=== PATIENT | male | born 1985 ===

== ENCOUNTER 2018-05-29 21:03 | Observation (INO) ==
[2018-05-29] MEDS ORDERED: Lidocaine 1% 20 ML MDV INFILT ONE (21:40)
[2018-05-29] MEDS ORDERED: Acetaminophen 325 MG TABLET PO ONE (21:40)
[2018-05-29] MEDS ORDERED: Isovue-370 500 ML INFUS..BTL IV ONE (21:42)
[2018-05-29] MEDS ORDERED: Levofloxacin 750 MG/150 ML 750 MG/150 ML BAG IVPB ONE (21:43)
[2018-05-29 22:13] LABS: Basophils # 0.1 K/mcL (0.0-0.2); Basophils % 0.5 %; Eosinophils # 0.2 K/mcL (0.0-0.6); Eosinophils % 1.1 %; Hematocrit 43.2 % (37.5-50.1); Hemoglobin 14.1 g/dL (12.9-16.9); Immature Granulocytes % 0.3 % (0-4); Lymphocytes # 2.4 K/mcL (0.6-4.6); Lymphocytes % 15.9 %; Mean Corpuscular HGB Conc 32.6 g/dL (31.6-35.5); Mean Corpuscular Hemoglobin 28.3 pg (28.0-33.3); Mean Corpuscular Volume 86.6 fL (83.0-100.0); Monocytes % 6.6 %; Neutrophils # 11.3 K/mcL (1.6-8.9); Platelet Count 294 K/mcL (140-400); Red Blood Count 4.99 M/mcL (4.19-5.50); Red Cell Distribution Width 12.8 % (11.5-14.5); Segmented Neutrophils % 75.6 %
[2018-05-29 22:32] LABS: BUN/Creatinine Ratio 20 (6-26); Blood Urea Nitrogen 21 mg/dL (6-20); Calcium 9.9 mg/dL (8.6-10.3); Carbon Dioxide 15 mEq/L (23-29); Chloride 94 mEq/L (98-107); Glucose 441 mg/dL (70-105); Osmolality,Calculated 288 (280-300); Potassium 4.4 mEq/L (3.5-5.1); Sodium 128 mEq/L (136-145); eGFR For Non-African Americans > 60 (> 60)
--- NOTE | 2018-05-29 23:02 | Emergency Department Note ---
Disposition Clinical Impression: Cellulitis of groin, left Disposition: Admitted As Inpatient Condition: Fair Time of Disposition: 00:47 General Adult HPI - General Chief complaint: ED Skin/Abscess/Foreign Body Stated complaint: abscess on left thigh Time Seen by Provider: 05/29/18 21:21 Source: patient Mode of arrival: ambulatory Limitations: no limitations Nursing Notes Reviewed: Yes Vital Signs Reviewed: Yes - History of Present Illness HPI Narrative: Patient is a 32-year-old male with type 1 diabetes presenting to the emergency department for evaluation of an abscess. The patient states his symptoms started approximately 4 days ago she noticed a small razor bump in his left groin and it has progressed over the past 4 days to large area of swelling that was actively draining a purulent fluid yesterday. States she is also felt very fatigued and reports low fevers. Denies history of abscesses that needed drainage in the past. Denies history of IV drug use. Pain Scale: 4 - Related Data Home Medications Medication Instructions Recorded Confirmed Insulin NPH Hum/Reg Insulin Hm 28 - 30 unit SQ BID 05/30/18 05/30/18 [Novolin 70-30 100 Unit/ml Vial] Allergies Allergy/AdvReac Type Severity Reaction Status Date / Time No Known Allergies Allergy Verified 05/29/18 21:21 All systems ED: reviewed and negative except as stated. Review of Systems: As Per HPI Constitutional: Denies: fever, chills Cardiovascular: Denies: chest pain, palpitations Gastrointestinal: Denies: abdominal pain, nausea, vomiting Genitourinary: Reports: other (Left groin abscess) Musculoskeletal: Denies: back pain Past Medical History - Past Medical History Attestation: Yes The following information was validated with the patient. Medical history: Reports: diabetes Psychiatric history: Reports: no psych history - Social History Smoking Status: Never smoker Smokeless Tobacco Status: No Alcohol use: Reports: none Drug use: Reports: none Physical Exam CONSTITUTIONAL: Alert and oriented X3, well-nourished, well appearing, in no apparent distress HEAD: Normocephalic; atraumatic. EYES: PERRL, no scleral icterus. NOSE: The nose is normal in appearance without rhinorrhea RESP: Normal chest excursion with respiration; breath sounds clear and equal b ilaterally; no wheezes, rhonchi, or rales CARD: Regular rhythm, without murmurs, rub or gallop ABD: Non-distended; non-tender, soft,without rigidity, rebound or guarding : No testicular tenderness. No scrotal involvement. SKIN: Area of induration approximately 9cm x 3cm along the left inner thigh adjacent to the scrotum extending down across the left gluteal fold. Does not appear to be jovani-rectal involvement. Area of fluctuance over the area of induration. Surrounding erythema. - General Limitations: no limitations General appearance: alert Course Course Narrative: Given patient's tachycardia and he is just below febrile at 100.2 plan at this time is to treat him empirically with antibiotics, obtain cultures, also undergo CT scan of the pelvis with contrast to evaluate for extension of the abscess. Patient will most likely require admission given his history of diabetes location of the current abscess. - Reevaluation(s) Reevaluation #1: Patient's CT scan was unremarkable for phlegmon without any localization or collection of fluid. There was extension of the perineum and partially the scrotum but there was no free gas found. His lactic acid was normal. It a mild leukocytosis. His tachycardia improved with fluids is currently on IV antibiotics. Discussed case with the hospitalist on-call and he agrees to accep t the patient requested that I consult with general surgery to make them aware of the patient just in case he progresses into the 40s gangrene. Time: 00:46 Vital Signs Temperature 100.2 F H 05/29/18 21:17 Pulse Rate 109 05/29/18 21:17 Respiratory Rate 20 05/29/18 21:17 Blood Pressure 146/46 05/29/18 21:17 O2 Sat by Pulse Oximetry 98 05/29/18 21:17 Temperature 100.2 F H 05/29/18 21:17 Pulse Rate 93 05/29/18 23:24 Respiratory Rate 20 05/29/18 23:24 Blood Pressure 121/72 05/29/18 23:24 O2 Sat by Pulse Oximetry 100 05/29/18 23:24 Oxygen Delivery Oxygen Delivery Room Air Medical Decision Making - Medical Records Medical records reviewed: Yes I reviewed the patient's medical records. - Lab Data Lab results reviewed: Yes I reviewed the patient's lab results. Result diagrams: 05/31/18 04:02 05/31/18 04:02 Lab Results 05/29/18 05/29/18 05/29/18 Range/Units 21:40 21:40 21:55 WBC 14.9 H (4.3-11.1) K/mcL RBC 4.99 (4.19-5.50) M/mcL Hgb 14.1 (12.9-16.9) g/dL Hct 43.2 (37.5-50.1) % MCV 86.6 (83.0-100.0) fL MCH 28.3 (28.0-33.3) pg MCHC 32.6 (31.6-35.5) g/dL RDW 12.8 (11.5-14.5) % Plt Count 294 (140-400) K/mcL MPV 10.0 (9.4-12.4) fL Immature Gran % 0.3 (0-4) % Seg Neutrophils % 75.6 % Lymphocytes % 15.9 % Monocytes % 6.6 % Eosinophils % 1.1 % Basophils % 0.5 % Neutrophils # 11.3 H (1.6-8.9) K/mcL Lymphocytes # 2.4 (0.6-4.6) K/mcL Monocytes # 1.0 (0.0-1.3) K/mcL Eosinophils # 0.2 (0.0-0.6) K/mcL Basophils # 0.1 (0.0-0.2) K/mcL Sodium 128 L (136-145) mEq/L Potassium 4.4 (3.5-5.1) mEq/L Chloride 94 L (98-107) mEq/L Carbon Dioxide 15 L (23-29) mEq/L BUN 21 H (6-20) mg/dL Creatinine 1.05 (0.70-1.30) mg/dL Est GFR ( Amer) > 60 (> 60) Est GFR (Non-Af Amer) > 60 (> 60) BUN/Creatinine Ratio 20 (6-26) Glucose 441 H (70-105) mg/dL Calculated Osmolality 288 (280-300) Lactic Acid 1.4 (0.5-2.2) mmol/L Calcium 9.9 (8.6-10.3) mg/dL - Radiology Data Radiology results reviewed: Yes I reviewed the patient's radiology results. Pelvis CT 05/29/18 21:42 IMPRESSION: Upper inner thigh edema and phlegmon, but a well-defined enhancing rim is not seen to suggest focal abscess at this time. This process partially extends into the perineum at the base of the scrotum. No soft tissue gas is detected. D/ / Jose Juan Chun MD / Jose Juan Chun MD Interpreting Provider: Jose Juan Chun MD
--- NOTE | 2018-05-29 23:08 | Emergency Department Note ---
Disposition Clinical Impression: Perineal abscess Disposition: Admitted As Inpatient Condition: Fair Referrals: NONE,PCP [Primary Care Provider] - Forms: ED Satisfaction Letter Time of Disposition: 00:45 General Adult HPI - General Chief complaint: ED Skin/Abscess/Foreign Body Stated complaint: abscess on left thigh Time Seen by Provider: 05/29/18 21:21 Source: patient Limitations: no limitations - History of Present Illness Pain Scale: 9 - Related Data Home Medications Medication Instructions Recorded Confirmed Loratadine 11/27/16 Novalin 70/30 Insulin 11/27/16 Previous Rx's Medication Instructions Recorded predniSONE [Prednisone] 20 mg PO DAILY #10 tablet 11/27/16 Diclofenac Potassium 50 mg PO TID PRN #20 tablet 12/23/17 Allergies Allergy/AdvReac Type Severity Reaction Status Date / Time No Known Allergies Allergy Verified 05/29/18 21:21 Past Medical History - Past Medical History Medical history: Reports: diabetes Psychiatric history: Reports: no psych history - Social History Smoking Status: Never smoker Smokeless Tobacco Status: No Alcohol use: Reports: none Drug use: Reports: none Physical Exam - General Limitations: no limitations General appearance: alert Course Vital Signs Temperature 100.2 F H 05/29/18 21:17 Pulse Rate 109 05/29/18 21:17 Respiratory Rate 20 05/29/18 21:17 Blood Pressure 146/46 05/29/18 21:17 O2 Sat by Pulse Oximetry 98 05/29/18 21:17 Temperature 100.2 F H 05/29/18 21:17 Pulse Rate 93 05/29/18 23:24 Respiratory Rate 20 05/29/18 23:24 Blood Pressure 121/72 05/29/18 23:24 O2 Sat by Pulse Oximetry 100 05/29/18 23:24 Oxygen Delivery Oxygen Delivery Room Air Medical Decision Making - Lab Data Result diagrams: 05/29/18 21:40 05/29/18 21:40 Lab Results 05/29/18 05/29/18 05/29/18 Range/Units 21:40 21:40 21:55 WBC 14.9 H (4.3-11.1) K/mcL RBC 4.99 (4.19-5.50) M/mcL Hgb 14.1 (12.9-16.9) g/dL Hct 43.2 (37.5-50.1) % MCV 86.6 (83.0-100.0) fL MCH 28.3 (28.0-33.3) pg MCHC 32.6 (31.6-35.5) g/dL RDW 12.8 (11.5-14.5) % Plt Count 294 (140-400) K/mcL MPV 10.0 (9.4-12.4) fL Immature Gran % 0.3 (0-4) % Seg Neutrophils % 75.6 % Lymphocytes % 15.9 % Monocytes % 6.6 % Eosinophils % 1.1 % Basophils % 0.5 % Neutrophils # 11.3 H (1.6-8.9) K/mcL Lymphocytes # 2.4 (0.6-4.6) K/mcL Monocytes # 1.0 (0.0-1.3) K/mcL Eosinophils # 0.2 (0.0-0.6) K/mcL Basophils # 0.1 (0.0-0.2) K/mcL Sodium 128 L (136-145) mEq/L Potassium 4.4 (3.5-5.1) mEq/L Chloride 94 L (98-107) mEq/L Carbon Dioxide 15 L (23-29) mEq/L BUN 21 H (6-20) mg/dL Creatinine 1.05 (0.70-1.30) mg/dL Est GFR ( Amer) > 60 (> 60) Est GFR (Non-Af Amer) > 60 (> 60) BUN/Creatinine Ratio 20 (6-26) Glucose 441 H (70-105) mg/dL Calculated Osmolality 288 (280-300) Lactic Acid 1.4 (0.5-2.2) mmol/L Calcium 9.9 (8.6-10.3) mg/dL Attestation Statement - Attestation Attestation: I examined this patient and my medical decision-making was reviewed with the Resident Physician. I agree with the documented findings, disposition and treatment plan as described except to the extent set forth below. Patient to the ED with a chief complaint of thigh abscess. Patient has an abscess that started 4 days ago as a pimple. It is grown. Fever. He is a type I diabetic. On examination he has an area of fluctuance lateral to the scrotum. Extending into the gluteal fold. Plan. We will check CT. Basic lab work. Likely admission. . Patient has a white blood cell count of 15. Tachycardia. He meet sepsis criteria. Patient admitted to the hospitalist with a surgical consult. Pelvis CT 05/29/18 21:42 IMPRESSION: Upper inner thigh edema and phlegmon, but a well-defined enhancing rim is not seen to suggest focal abscess at this time. This process partially extends into the perineum at the base of the scrotum. No soft tissue gas is detected. D/ / Jose Juan Chun MD / Jose Juan Chun MD Interpreting Provider: Jose Juan Chun MD
[2018-05-30] MEDS ORDERED: Insulin LISPRO 300 UNITS/3 ML VIAL SQ STA (00:51)
--- NOTE | 2018-05-30 08:20 | General Surgery Consult Note ---
<Charanjit Canales S - Last Filed: 05/30/18 17:20> Date of Encounter: 05/30/18 Time of Encounter: 07:56 Assessment and Plan (1) Abscess or cellulitis of groin Current Visit: Yes Status: Acute Surgery consulted for abscess of left thigh CT showed edema and phlegmon in upper inner thigh, no focal rim to suggest abscess, no soft tissue gas Patient did not have incision and drainage in ED Patient on IV Vancomycin and Zosyn WBC 14.9, continue to monitor Blood and wound cultures pending Will continue current treatment, may need incision and drainage tomorrow (2) Diabetes Current Visit: Yes Status: Acute Management per primary team Patient on med dose sliding scale insulin and 10 units of levemir at night POC glucose checks Qualifiers: Diabetes mellitus type: type 1 Diabetes mellitus complication detail: with diabetic retinopathy Qualified Code(s): E10.3559 - Type 1 diabetes mellitus wi th stable proliferative diabetic retinopathy, unspecified eye History of Present Illness Consult date: 05/30/18 Reason for consult: other (left thigh abscess) Requesting physician: Nathan Ramirez History of present illness: 32 year old male with PMHx of DM1 presented to [place] ED with mass on left inner thigh. Surgery consulted for abscess. Patient states the mass is located in his upper inner thigh and has been present for the past 4 days and has increased in size. Patient states there is localized pain and it's tender on palpation. He has no history of abscesses. He denies fevers/chill, CP, abdominal pain, nausea, vomiting, changes in bowel/bladder habits. Patient denies IV drug use, tobacco use, and alcohol use. Patient states he doesn't know when his last HbA1c was. Past Med Surg Social Fam HX - Past Medical History Medical history: diabetes Additional medical history: type ! DM Psychiatric history: no psych history - Social History Smoking Status: Never smoker Smokeless Tobacco Status: No Alcohol use: none Drug use: none - Family History Father Living Status: Hx Family Cardiac Disorders: Yes Hx Family Endocrine Disorder: Yes Mother Living Status: Still Living Hx Family Cancer: Yes Medications and Allergies Insulin NPH Hum/Reg Insulin Hm [Novolin 70-30 100 Unit/ml Vial] 28 - 30 unit SQ BID 05/30/18 [History] Allergy/AdvReac Type Severity Reaction Status Date / Time No Known Allergies Allergy Verified 05/29/18 21:21 Review of Systems All systems PM: The remainder of the systems were reviewed and are negative General Surgery Exam Initial Vital Signs Temp Pulse Resp BP Pulse Ox 100.2 F H 109 20 146/46 98 05/29/18 21:17 05/29/18 21:17 05/29/18 21:17 05/29/18 21:17 05/29/18 21:17 - General physical appearance well developed, well nourished, no distress - Respiratory normal expansion, normal respiratory effort - Cardiovascular Cardiovascular exam: Present: RRR - Abdomen Abdomen general surgery: Present: bowel sounds present, soft, non tender - Integumentary Integumentary general surgery: Present: warm and dry, other (3-4 cm indurated erythematous mass in upper inner left thigh adjacent to the scrotum, no fluctuance, not actively draining) - Psychiatric Psychiatric general surgery: Present: A&Ox3, appropriate Exam Initial Vital Signs Temp Pulse Resp BP Pulse Ox 100.2 F H 109 20 146/46 98 05/29/18 21:17 05/29/18 21:17 05/29/18 21:17 05/29/18 21:17 05/29/18 21:17 Results - Labs 05/29/18 21:40 05/29/18 21:40 Abnormal lab results WBC 14.9 K/mcL (4.3-11.1) H 05/29/18 21:40 Neutrophils # 11.3 K/mcL (1.6-8.9) H 05/29/18 21:40 Sodium 128 mEq/L (136-145) L 05/29/18 21:40 Chloride 94 mEq/L (98-107) L 05/29/18 21:40 Carbon Dioxide 15 mEq/L (23-29) L 05/29/18 21:40 BUN 21 mg/dL (6-20) H 05/29/18 21:40 Glucose 441 mg/dL (70-105) H 05/29/18 21:40 Diabetes panel 05/29/18 Range/Units 21:40 Sodium 128 L (136-145) mEq/L Potassium 4.4 (3.5-5.1) mEq/L Chloride 94 L (98-107) mEq/L Carbon Dioxide 15 L (23-29) mEq/L BUN 21 H (6-20) mg/dL Creatinine 1.05 (0.70-1.30) mg/dL Glucose 441 H (70-105) mg/dL Calcium 9.9 (8.6-10.3) mg/dL Calcium panel 05/29/18 Range/Units 21:40 Calcium 9.9 (8.6-10.3) mg/dL Pituitary panel 05/29/18 Range/Units 21:40 Sodium 128 L (136-145) mEq/L Potassium 4.4 (3.5-5.1) mEq/L Chloride 94 L (98-107) mEq/L Carbon Dioxide 15 L (23-29) mEq/L BUN 21 H (6-20) mg/dL Creatinine 1.05 (0.70-1.30) mg/dL Glucose 441 H (70-105) mg/dL Calcium 9.9 (8.6-10.3) mg/dL Adrenal panel 05/29/18 Range/Units 21:40 Sodium 128 L (136-145) mEq/L Potassium 4.4 (3.5-5.1) mEq/L Chloride 94 L (98-107) mEq/L Carbon Dioxide 15 L (23-29) mEq/L BUN 21 H (6-20) mg/dL Creatinine 1.05 (0.70-1.30) mg/dL Glucose 441 H (70-105) mg/dL Calcium 9.9 (8.6-10.3) mg/dL All other labs normal. Consult Discharge Plan - Plan Instructions: Abscess (GEN) Additional Instructions: Daily wound care: Monday and Monday, remove dressing and packing. Shower with antibacterial soap. Repack with 1/4 inch iodoform gauze. Cover with 4x4s. Tape to secure. Beginning Monday and forward continue the same routine however repack with 1/4 inch plain gauze. Referrals: Nuvia Barrios, GATEMAN [Advanced Practice Nurse] - <Markus Bethea - Last Filed: 06/01/18 13:19> Date of Encounter: 05/31/18 Assessment and Plan (1) Abscess or cellulitis of groin Current Visit: Yes Status: Acute (2) Diabetes Current Visit: Yes Status: Acute Qualifiers: Diabetes mellitus type: type 1 Diabetes mellitus complication detail: with diabetic retinopathy Qualified Code(s): E10.3559 - Type 1 diabetes mellitus with stable proliferative diabetic retinopathy, unspecified eye Review of Systems All systems PM: The remainder of the systems were reviewed and are negative General Surgery Exam Initial Vital Signs Temp Pulse Resp BP Pulse Ox 100.2 F H 109 20 146/46 98 05/29/18 21:17 05/29/18 21:17 05/29/18 21:17 05/29/18 21:17 05/29/18 21:17 Exam Initial Vital Signs Temp Pulse Resp BP Pulse Ox 100.2 F H 109 20 146/46 98 05/29/18 21:17 05/29/18 21:17 05/29/18 21:17 05/29/18 21:17 05/29/18 21:17 Results - Labs 05/31/18 04:02 05/31/18 04:02 Abnormal lab results Carbon Dioxide 22 mEq/L (23-29) L 05/31/18 04:02 Glucose 194 mg/dL (70-105) H 05/31/18 04:02 POC Glucose 228 mg/dL (70-99) H 06/01/18 03:20 All other labs normal. - Attending Attestation I have personally performed a face to face evaluation on this patient. I have reviewed and agree with the care plan. History and Exam by me shows: The patient is seen and evaluated. He initially had an area of cellulitis without fluctuance however, this developed into an abscess that required incision and drainage. Orders for packing have been arranged. Markus Bethea MD FACS
[2018-05-30] MEDS ORDERED: Naloxone 0.4 MG/ML INJ IVP PRN (08:36)
--- NOTE | 2018-05-30 08:45 | Internal Med History&Physical ---
Date of Encounter: 05/30/18 Time of Encounter: 08:44 Internal Medicine - H&P: HPI Chief complaint: thigh swelling Admitted From: Home Plans for Post Hospital Care: Home History of present illness: Mr. Vargas is a 32 year old male with past medical history of type 1 diabetes since age 13 and associated retinopathy coming complain of swelling on his thigh and groin region. Patient noticed a pimple around 4 days ago which she tried to squeeze and manage himself. The swelling increased over the next 2-3 days which made him to come to ER. He felt flulike symptoms and had mild grade fever about 100-101. Denies any chills lightheadedness. He had associated feeling of malaise and achiness skin. He has severe pain associated with swelling in the left groin region and had difficulty moving his legs due to the pain and swelling. At the other year facility he mentioned that they did rachel it to relieve pressure. He received vancomycin and Levaquin and was transferred for further management and [place]. Patient seen this morning. Currently with better pain control. Swelling decreased according to patient's and is able to move his leg without significant pain. Patient takes Novolin 70/30 around 28-30 units according to his sugar checks. 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 He has known retinopathy. Denies any tingling numbness, chest pain, shortness of breath, back pain, abdominal pain, leg swelling. The only medication he takes is insulin at home and ibuprofen for past few days. Has not received any antibiotics in the last year. Past Med Surg Social Fam HX - Past Medical History Medical history: diabetes Additional medical history: type ! DM Psychiatric history: no psych history - Social History Smoking Status: Never smoker Smokeless Tobacco Status: No Alcohol use: none Drug use: none - Family History Mother Living Status: Still Living Hx Family Cancer: Yes Father Living Status: Hx Family Cardiac Disorders: Yes Hx Family Endocrine Disorder: Yes Internal Medicine - H&P: Meds Loratadine 11/27/16 [History] Novalin 70/30 Insulin 11/27/16 [History] predniSONE [Prednisone] 20 mg PO DAILY #10 tablet 11/27/16 [Rx] Diclofenac Potassium 50 mg PO TID PRN #20 tablet 12/23/17 [Rx] Allergy/AdvReac Type Severity Reaction Status Date / Time No Known Allergies Allergy Verified 05/29/18 21:21 All Systems PM: A 10-system review of systems was performed and is negative for pertinent findings except as documented above in the HPI. - Constitutional Vitals: Temp Pulse Resp BP Pulse Ox 98.8 F 85 18 121/73 98 05/30/18 07:04 05/30/18 07:04 05/30/18 07:04 05/30/18 07:04 05/30/18 08:11 General appearance: Present: A&O X 3 Exam: Constitutional: Vitals as noted. Conversant. No Apparent Distress. Eyes : Sclera white, conjunctiva clear, no lid lag, PEARLA. ENT : Grossly normal hearing. Oropharyngeal exam unremarkable. Moist mucus membranes. No JVD, no cervical lymphadenopathy. no thyromegaly or mass. Respiratory : Clear to auscultation bilaterally. No accessory muscle use, rales, rhonchi or wheezes Cardiovascular : RRR, +S1, +S2. no murmur, gallop, rubs. No chest wall tenderness. pulses palpable and symmetrical in UE/LE. GI/Abdominal : Soft, Non-tender, Non-distended, normal bowel sounds, soft, no peritoneal signs. no orgenomegaly or mass appreciated. no hernia. Musculoskeletal: no deformity noted. no edema or cyanosis. warm extremities, no calf tenderness. Neurological: AO X3, CN II-XII grossly intact, grossly normal motor and sensory exam. Skin: 6x7 cm indurated lesion on Medial aspect on Left groin extending to scrotal region. Minimal drainage noted. Pych: Good insight and judgement. Intact memory. AOx3. Internal Med - H&P Results - Labs CBC & Chem 7: 05/29/18 21:40 05/29/18 21:40 Labs: Short CBC 05/29/18 Range/Units 21:40 WBC 14.9 H (4.3-11.1) K/mcL Hgb 14.1 (12.9-16.9) g/dL Hct 43.2 (37.5-50.1) % Plt Count 294 (140-400) K/mcL Neutrophils # 11.3 H (1.6-8.9) K/mcL BMP 05/29/18 21:40 Sodium 128 L Potassium 4.4 Chloride 94 L Carbon Dioxide 15 L BUN 21 H Creatinine 1.05 Glucose 441 H Calcium 9.9 - Impressions ITS Impressions Pelvis CT 05/29/18 21:42 IMPRESSION: Upper inner thigh edema and phlegmon, but a well-defined enhancing rim is not seen to suggest focal abscess at this time. This process partially extends into the perineum at the base of the scrotum. No soft tissue gas is detected. D/ / Jose Juan Chun MD / Jose Juan Chun MD Interpreting Provider: Jose Juan Chun MD - Assessment and plan (1) Abscess or cellulitis of groin Current Visit: Yes Status: Acute Assessment and plan: Patient has cellulitis/phlegmon on left groin without CT evidence of any gas - No CT evidence of enhancing rim to suggest abscess - Patient had some drainage the other facility - We will continue patient on vancomycin. Add Zosyn gram-negative and anaerobic coverage for now. - Follow up blood cultures and drainage cultures - We will likely need drainage. Surgery following. - Pain control with ibuprofen and acetaminophen (2) Diabetes Current Visit: Yes Status: Acute Assessment and plan: - 10 units Levemir at night. May increase based on Accu-Cheks - Continue with Accu-Cheks and sliding scale insulin Qualifiers: Diabetes mellitus type: type 1 Diabetes mellitus complication detail: with diabetic retinopathy Qualified Code(s): E10.3559 - Type 1 diabetes mellitus with stable proliferative diabetic retinopathy, unspecified eye - Time Spent With Patient Total time spent is greater than 50% in coordination of care (as documented) at patient's floor/unit and/or counseling patient: - VTE Reasons for not Prescribing Prophylaxis: Treatment not Indicated - Low risk for VTE
[2018-05-30] MEDS ORDERED: Ibuprofen 600 MG TABLET PO PRN (09:16)
[2018-05-30] MEDS ORDERED: Acetaminophen 325 MG TABLET PO PRN (09:18)
[2018-05-30] MEDS: Piperacillin/Tazobactam 3.375 GM in 0.9 % Sodium Chloride Mini Bag 100 ML IVPB SCH ×2 (11:07→16:41)
[2018-05-30] MEDS: Insulin LISPRO 300 UNITS/3 ML VIAL SQ SCH ×2 (12:47→16:43)
[2018-05-30] MEDS ORDERED: Insulin DETEMIR 100 UNIT/ML X5UNITS SQ SCH (21:00)
[2018-05-31] MEDS: Piperacillin/Tazobactam 3.375 GM in 0.9 % Sodium Chloride Mini Bag 100 ML IVPB SCH ×3 (00:08→17:15)
[2018-05-31 04:39] LABS: Basophils # 0.1 K/mcL (0.0-0.2); Basophils % 0.5 %; Eosinophils # 0.5 K/mcL (0.0-0.6); Eosinophils % 4.8 %; Hematocrit 38.2 % (37.5-50.1); Immature Granulocytes % 0.2 % (0-4); Lymphocytes # 2.6 K/mcL (0.6-4.6); Lymphocytes % 26.3 %; Mean Corpuscular Hemoglobin 28.4 pg (28.0-33.3); Mean Corpuscular Volume 83.4 fL (83.0-100.0); Mean Platelet Volume 9.6 fL (9.4-12.4); Monocytes # 0.8 K/mcL (0.0-1.3); Monocytes % 8.6 %; Neutrophils # 5.8 K/mcL (1.6-8.9); Platelet Count 261 K/mcL (140-400); Red Blood Count 4.58 M/mcL (4.19-5.50); Red Cell Distribution Width 12.9 % (11.5-14.5); Segmented Neutrophils % 59.6 %
[2018-05-31 05:03] LABS: BUN/Creatinine Ratio 10 (6-26); Blood Urea Nitrogen 8 mg/dL (6-20); Calcium 9.3 mg/dL (8.6-10.3); Carbon Dioxide 22 mEq/L (23-29); Chloride 102 mEq/L (98-107); Glucose 194 mg/dL (70-105); Osmolality,Calculated 288 (280-300); Potassium 3.9 mEq/L (3.5-5.1); Sodium 137 mEq/L (136-145); eGFR For Non-African Americans > 60 (> 60)
[2018-05-31] MEDS: Insulin LISPRO 300 UNITS/3 ML VIAL SQ SCH ×4 (08:32→23:40)
[2018-05-31] MEDS ORDERED: Lidocaine -MPF 2% 5 ML VIAL INFILT ONE (08:42)
[2018-05-31] MEDS ORDERED: Lidocaine -MPF 2% 10 ML AMPUL INFILT STA (08:56)
--- NOTE | 2018-05-31 09:01 | General Surgery Procedure Note ---
Date of procedure: 05/31/18 Pre-op diagnosis: abscess Procedure: ABSCESS INCISION AND DRAINAGE NOTE INDICATION: Abscess manifested as a tender, swollen fluctuant mass in the superficial subcutaneous tissue. INFORMED CONSENT: The risks and benefits of the procedure including incomplete drainage, scarring, infection and bleeding was explained and the patient verbalized their understanding and wished to proceed with the procedure. PROCEDURE: The area of greatest fluctuance was identified, prepped, and draped in a sterile fashion. Local anesthetic (10 MLs of 2% lidocaine) was introduced subcutaneously over the area of greatest fluctuance. A linear incision was then made over the area of greatest fluctuance, with immediate return of a large amount of purulent material. The wound was explored with a hemostat to break up loculations and irrigated with 40MLs saline solution. Once the wound was explored, cleaned, and irrigated, 1/4 inch iodoform gauze packing was placed loosely in the wound. A dressing was then applied. FINDINGS: Purulent drainage. EBL: <5 mL COMPLICATIONS: None. Signature: Camila Urban APRN, MANAGER [employer]
[2018-05-31] MEDS ORDERED: Lidocaine -MPF 2% 5 ML VIAL INFILT STA (09:03)
[2018-05-31] MEDS ORDERED: *HR* FentaNYL (PF) 100 MCG/2 ML VIAL IVP STA (09:03)
[2018-05-31] MEDS ORDERED: Ondansetron 4 MG/2 ML VIAL IVP STA (09:04)
--- NOTE | 2018-05-31 10:08 | General Surgery Progress Note ---
Date of Encounter: 05/31/18 Time of Encounter: 09:59 - Assessment and Plan (1) Abscess or cellulitis of groin Current Visit: Yes Status: Acute I&D completed (see procedure note). Copious amounts purulent material retrieved. Cultures obtained. May change outer dressing today if needed, do not remove packing. Daily wound care: remove dressing and packing. Shower with antibacterial soap. Repack with 1/4 inch iodoform gauze on Monday and Monday. Cover with a dry dressing. Beginning Monday continue same regiment with 1/4 inch plain gauze. Follow-up priti/vernon 06/08/2018 ATBX per primary team Surgery will sign off at this time. Patient will need home healthcare for wound packing. He will not be able to pack this wound by himself and there is no one at home who can help him. 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 It's a history of frequent ingrown hairs and he is a type I diabetic. He denies IV drug use Objective Vital Signs - Last 8 Hours Temp Pulse Resp BP Pulse Ox 05/31/18 06:54 98.8 F 73 16 115/75 97 05/31/18 05:00 98.3 F 74 15 117/73 98 Intake and Output 05/30/18 05/31/18 05/31/18 23:59 07:59 15:59 Intake Total 1000 / 1000 250 / 250 100 / 100 Output Total 900 / 900 800 / 800 Balance 100 / 100 -550 / -550 100 / 100 Intake: IV Fluids 100 / 100 250 / 250 100 / 100 Zosyn 3.375 GM In 0.9 % Sodium 100 / 100 100 / 100 Chloride (Mini-Bag +) 100 ML @ 25 mls/hr IVPB Q8HR [facility] Rx#: [id number] Vancocin 1,250 MG In 0.9 % 250 / 250 Sodium Chloride 250 ML @ 166.67 mls/hr IVPB Q12H [facility]ZE[facility] Rx#: [id number] Oral 900 / 900 0 / 0 Output: Urine 900 / 900 800 / 800 Other: # Bowel Movements 0 Weight 85.2 kg Blood Glucose* 275 200 Patient Weight 05/31/18 23:59 Weight 85.2 kg - General physical appearance no distress - Eyes normal ocular movement - ENT normal nares, atraumatic, normocephalic - Respiratory normal expansion, normal respiratory effort, clear to auscultation - Cardiovascular Cardiovascular exam: Present: RRR - Abdomen Abdomen: Present: bowel sounds present, soft, non tender - Genitourinary other (Left groin abscess extends near the scrotum but is not communicating to the scrotum.) - Integumentary other (Left groin abscess extends near the gluteus and scrotum. Draining. Obvious areas of fluctuance.) - Musculoskeletal normal posture - Psychiatric oriented to time, oriented to person, oriented to place, speech is normal, memory intact - Labs 05/31/18 04:02 05/31/18 04:02 Diabetes panel 05/31/18 Range/Units 04:02 Sodium 137 (136-145) mEq/L Potassium 3.9 (3.5-5.1) mEq/L Chloride 102 (98-107) mEq/L Carbon Dioxide 22 L (23-29) mEq/L BUN 8 (6-20) mg/dL Creatinine 0.80 (0.70-1.30) mg/dL Glucose 194 H (70-105) mg/dL Calcium 9.3 (8.6-10.3) mg/dL Calcium panel 05/31/18 Range/Units 04:02 Calcium 9.3 (8.6-10.3) mg/dL Pituitary panel 05/31/18 Range/Units 04:02 Sodium 137 (136-145) mEq/L Potassium 3.9 (3.5-5.1) mEq/L Chloride 102 (98-107) mEq/L Carbon Dioxide 22 L (23-29) mEq/L BUN 8 (6-20) mg/dL Creatinine 0.80 (0.70-1.30) mg/dL Glucose 194 H (70-105) mg/dL Calcium 9.3 (8.6-10.3) mg/dL Adrenal panel 05/31/18 Range/Units 04:02 Sodium 137 (136-145) mEq/L Potassium 3.9 (3.5-5.1) mEq/L Chloride 102 (98-107) mEq/L Carbon Dioxide 22 L (23-29) mEq/L BUN 8 (6-20) mg/dL Creatinine 0.80 (0.70-1.30) mg/dL Glucose 194 H (70-105) mg/dL Calcium 9.3 (8.6-10.3) mg/dL - VTE Reasons for not Prescribing Prophylaxis: Treatment not Indicated - Low risk for VTE Consult Discharge Plan - Plan Instructions: Abscess (GEN) Additional Instructions: Daily wound care: Monday and Monday, remove dressing and packing. Shower with antibacterial soap. Repack with 1/4 inch iodoform gauze. Cover with 4x4s. Tape to secure. Beginning Monday and forward continue the same routine however repack with 1/4 inch plain gauze. Referrals: Nuvia Barrios, ARMORING MACHINE OPERATOR [Advanced Practice Nurse] -
[2018-05-31] MEDS ORDERED: *HR* HYDROcodone/Acet 5/325 mg TABLET PO PRN (10:12)
[2018-05-31] MEDS ORDERED: Vancomycin 500 MG in 0.9 % Sodium Chloride Mini Bag 100 ML IVPB STA (13:01)
--- NOTE | 2018-05-31 15:09 | Internal Med Progress Note ---
Hospitalist Progress Note - Encounter Date of Encounter: 05/31/18 Time of Encounter: 12:16 - Subjective Interval History: Patient seen and examined this morning. No acute overnight events. Denies new complains. Pain impoved. No fever, chills, N/V/D. - Exam Vitals: Temp Pulse Resp BP Pulse Ox 98.5 F 90 16 128/76 98 05/31/18 14:27 05/31/18 14:27 05/31/18 14:27 05/31/18 14:27 05/31/18 14:27 Exam: Constitutional: Vitals as noted. Conversant. No Apparent Distress. ENT : Grossly normal hearing. Oropharyngeal exam unremarkable. Moist mucus membranes. No JVD, no cervical lymphadenopathy. no thyromegaly or mass. Respiratory : Clear to auscultation bilaterally. No accessory muscle use, rales, rhonchi or wheezes Cardiovascular : RRR, +S1, +S2. no murmur, gallop, rubs. No chest wall tenderness. pulses palpable and symmetrical in UE/LE. GI/Abdominal : Soft, Non-tender, Non-distended, normal bowel sounds, soft, no peritoneal signs. no orgenomegaly or mass appreciated. no hernia. Musculoskeletal: no deformity noted. no edema or cyanosis. warm extremities, no calf tenderness. Neurological: AO X3, CN II-XII grossly intact, grossly normal motor and sensory exam. Skin: Dressing recently place after I&D. Did not reopen. - Assessment and Plan (1) Abscess or cellulitis of groin Current Visit: Yes Status: Acute (2) Diabetes Current Visit: Yes Status: Acute - Summary of Assessment and Plan Summary of Assessment and Plan: Abscess or cellulitis of groin - No CT evidence of any gas or enhancing rim to suggest abscess - s/p I&D - c/w vancomycin and Zosyn - f/u cultures - Pain control with ibuprofen and acetaminophen - Plan for DC based on culture report Diabetes - Will increase Levemir to 20 tonight - Continue with Accu-Cheks and sliding scale insulin - Time Spent with Patient Total time spent is greater than 50% in coordination of care (as documented) at patient's floor/unit and/or counseling patient: Internal Medicine: Result - Labs CBC & Chem 7: 05/31/18 04:02 05/31/18 04:02 Labs: Short CBC 05/31/18 Range/Units 04:02 WBC 9.8 (4.3-11.1) K/mcL Hgb 13.0 (12.9-16.9) g/dL Hct 38.2 (37.5-50.1) % Plt Count 261 (140-400) K/mcL Neutrophils # 5.8 (1.6-8.9) K/mcL BMP 05/31/18 04:02 Sodium 137 Potassium 3.9 Chloride 102 Carbon Dioxide 22 L BUN 8 Creatinine 0.80 Glucose 194 H Calcium 9.3 - VTE Reasons for not Prescribing Prophylaxis: Treatment not Indicated - Low risk for VTE Consult Discharge Plan - Plan Instructions: Abscess (GEN) Additional Instructions: Daily wound care: Monday and Monday, remove dressing and packing. Shower with antibacterial soap. Repack with 1/4 inch iodoform gauze. Cover with 4x4s. Tape to secure. Beginning Monday and forward continue the same routine however repack with 1/4 inch plain gauze. 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
[2018-05-31] MEDS ORDERED: Insulin DETEMIR 100 UNIT/ML X5UNITS SQ SCH (21:00)
[2018-06-01] MEDS: Piperacillin/Tazobactam 3.375 GM in 0.9 % Sodium Chloride Mini Bag 100 ML IVPB SCH ×3 (02:01→17:10)
[2018-06-01] MEDS: Insulin LISPRO 300 UNITS/3 ML VIAL SQ SCH ×4 (09:03→20:34)
[2018-06-01] MEDS ORDERED: Aminoglycoside Consult 1 EACH MC ONE (11:43)
--- NOTE | 2018-06-01 12:02 | Internal Med Progress Note ---
Hospitalist Progress Note - Encounter Date of Encounter: 06/01/18 Time of Encounter: 10:54 - Subjective Interval History: Patient seen and examined this morning. No acute overnight events. Pain improved. No fever, chills, N/V/D. c/o some headache. - Exam Vitals: Temp Pulse Resp BP Pulse Ox 98.4 F 92 15 135/83 99 06/01/18 10:21 06/01/18 10:21 06/01/18 10:21 06/01/18 10:21 06/01/18 10:21 Exam: Constitutional: Vitals as noted. Conversant. No Apparent Distress. Respiratory : Clear to auscultation bilaterally. No accessory muscle use, rales, rhonchi or wheezes Cardiovascular : RRR, +S1, +S2. no murmur, gallop, rubs. No chest wall tenderness. pulses palpable and symmetrical in UE/LE. GI/Abdominal : Soft, Non-tender, Non-distended, normal bowel sounds, soft, no peritoneal signs. no orgenomegaly or mass appreciated. no hernia. Musculoskeletal: no deformity noted. no edema or cyanosis. warm extremities, no calf tenderness. Neurological: AO X3, CN II-XII grossly intact, grossly normal motor and sensory exam. Skin: Dressing replaced bone char kiln operator. - Assessment and Plan (1) Abscess or cellulitis of groin Current Visit: Yes Status: Acute (2) Diabetes Current Visit: Yes Status: Acute - Summary of Assessment and Plan Summary of Assessment and Plan: Abscess or cellulitis of groin - No CT evidence of any gas or enhancing rim to suggest abscess - s/p I&D 05/31 - c/w vancomycin and Zosyn - f/u cultures. - Pain control with ibuprofen and acetaminophen - Plan for DC based on culture report Diabetes - c/w Levemir at 30. - Continue with Accu-Cheks and sliding scale insulin - Time Spent with Patient Total time spent is greater than 50% in coordination of care (as documented) at patient's floor/unit and/or counseling patient: Internal Medicine: Result - Labs CBC & Chem 7: 05/31/18 04:02 05/31/18 04:02 - VTE Reasons for not Prescribing Prophylaxis: Treatment not Indicated - Low risk for VTE Consult Discharge Plan - Plan Instructions: Abscess (GEN) Additional Instructions: Daily wound care: Monday and Monday, remove dressing and packing. Shower with antibacterial soap. Repack with 1/4 inch iodoform gauze. Cover with 4x4s. Tape to secure. Beginning Monday and continue the same routine however repack with 1/4 inch plain gauze. 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
[2018-06-01] MEDS ORDERED: *HR* HYDROcodone/Acet 5/325 mg TABLET PO PRN (14:30)
[2018-06-01] MEDS: Ibuprofen 600 MG TABLET PO SCH (20:33)
[2018-06-01] MEDS ORDERED: Insulin DETEMIR 100 UNIT/ML X5UNITS SQ SCH (21:00)
[2018-06-02] MEDS: Piperacillin/Tazobactam 3.375 GM in 0.9 % Sodium Chloride Mini Bag 100 ML IVPB SCH ×2 (00:31→09:21)
[2018-06-02 07:49] VITALS: BP 127/78
[2018-06-02] MEDS: Insulin LISPRO 300 UNITS/3 ML VIAL SQ SCH (08:01)
--- NOTE | 2018-06-02 08:57 | Discharge Summary ---
- NOTES TO OUTPATIENT PROVIDER Notes to Outpatient Provider: s/p I&D of abscess. Wound cultures grew step agalactie.Home health arranged for dressing. 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 Vargas is a 32 year old male past medical history of type 1 diabetes with retinopathy came with cellulitis and abscess in the left gluteal region extending to scrotum. Patient had I&D done by surgery. Wound cultures grew Streptococcus agalactiae. We will discharge patient to continue 10 day course of antibiotic with Augmentin 500 twice a day for the next 7 days. Patient would need packing and wound care for which home health is arranged. We will disch arge patient today Discharge discussed with: patient, nurse - Time Spent with Patient Total time spent providing and/or coordinating discharge services: Greater than 30 minutes (40) - Discharge Medications Prescriptions: Amoxicillin/Clavulanate [Augmentin] 500 mg PO BIDWM 7 Days #14 tablet Ibuprofen [Motrin] 600 mg PO BID 7 Days #14 tablet Home Medications: Insulin NPH Hum/Reg Insulin Hm [Novolin 70-30 100 Unit/ml Vial] 28 - 30 unit SQ BID 05/30/18 [History] Amoxicillin/Clavulanate [Augmentin] 500 mg PO BIDWM 7 Days #14 tablet 06/02/18 [Rx] Ibuprofen [Motrin] 600 mg PO BID 7 Days #14 tablet 06/02/18 [Rx] Allergies/Adverse Reactions: Allergy/AdvReac Type Severity Reaction Status Date / Time No Known Allergies Allergy Verified 05/29/18 21:21 Date of admission: 05/30/18 00:59 Primary care physician: PCP NONE Consults: 05/30/18 00:44 Consult to Surgery [CONS] Stat Consulting Provider: Markus Bethea Reason for Consult: cellulitis of groin Time Notified: 00:45 Call Completed: Yes 05/31/18 10:11 Consult to Substation Designer [CONS] Stat Reason for Consult: [facility] for wound packing Discharging clinician: Jody Portillo - Constitutional Vitals: Temp Pulse Resp BP Pulse Ox 98.4 F 81 15 127/78 97 06/02/18 07:43 06/02/18 07:43 06/02/18 07:43 06/02/18 07:43 06/02/18 07:43 General appearance: Present: A&O X 3, no acute distress Exam: Constitutional: Vitals as noted. Conversant. No Apparent Distress. Respiratory : Clear to auscultation bilaterally. No accessory muscle use, rales, rhonchi or wheezes Cardiovascular : RRR, +S1, +S2. no murmur, gallop, rubs. No chest wall tenderness. pulses palpable and symmetrical in UE/LE. GI/Abdominal : Soft, Non-tender, Non-distended, normal bowel sounds, soft, no peritoneal signs. no orgenomegaly or mass appreciated. no hernia. Musculoskeletal: no deformity noted. no edema or cyanosis. warm extremities, no calf tenderness. Neurological: AO X3, CN II-XII grossly intact, grossly normal motor and sensory exam. Skin: Dressing in place. Not soaked. - Patient Status Disposition: Home Health Service Condition: Fair - Discharge Instructions Instructions: Abscess (GEN) Follow Up With: Nuvia Barrios, CARDIOPULMONARY TECHNICIAN [Advanced Practice Nurse] - Additional Instructions: Daily wound care: Monday and Monday, remove dressing and packing. Shower with antibacterial soap. Repack with 1/4 inch iodoform gauze. Cover with 4x4s. Tape to secure. Beginning Monday and forward continue the same routine however repack with 1/4 inch plain gauze. - Diet and Activity Activity: resume usual activities as tolerated - VTE Reasons for not Prescribing Prophylaxis: Treatment not Indicated - Low risk for VTE
[2018-06-02] MEDS: Ibuprofen 600 MG TABLET PO SCH (09:21)
--- NOTE | 2018-06-02 10:21 | Physician Discharge Referral ---
Home Health/Hosp Referral Info Transfer to: Home Health - Diagnosis (1) Abscess or cellulitis of groin Priority: Primary Status: Acute (2) Diabetes Priority: Secondary Status: Acute - Respiratory Orders Smoking Cessation: Smoking cessation has been advised. For more information, call the [place] Tobacco Quit Line at 1-147-LBSB-NOW. - Services Needed Following services are medically necessary services: Nursing (needs packing of wound.) - Transfer Medications Prescriptions: Amoxicillin/Clavulanate [Augmentin] 500 mg PO BIDWM 7 Days #14 tablet Ibuprofen [Motrin] 600 mg PO BID 7 Days #14 tablet Home Medications: Insulin NPH Hum/Reg Insulin Hm [Novolin 70-30 100 Unit/ml Vial] 28 - 30 unit SQ BID 05/30/18 [History] Amoxicillin/Clavulanate [Augmentin] 500 mg PO BIDWM 7 Days #14 tablet 06/02/18 [Rx] Ibuprofen [Motrin] 600 mg PO BID 7 Days #14 tablet 06/02/18 [Rx] Allergies/Adverse Reactions: Allergy/AdvReac Type Severity Reaction Status Date / Time No Known Allergies Allergy Verified 05/29/18 21:21 Certification: Further, I certify that my clinical findings support that this patient is homebound (i.e. absences from home require considerable and taxing effort and are for medical reasons or confucianism services or infrequently or short duration when for other reasons) because: Homebound Reason: Patient requires assistance of a person or device to safely leave home Attestation: My signature below is to certify that this patient is under my care and that I, or nurse practitioner, or a physician's rn first assistant working with me, has a [id number] encounter with this patient.
== END 2018-06-02 11:44 | disposition home health service (06) ==
LOC: 3ANU 21:03 → EMEROOARM 21:03 → SUATTDRO 05-30 00:59 → 3ANU 05-30 01:23
PROVIDERS: ADMIT Family Medicine; ATTEND Internal Medicine

== ENCOUNTER 2022-04-21 09:32 | Inpatient (IN) ==
[2022-04-21 10:54] LABS: Basophils # 0.1 K/mcL (0.0-0.2); Eosinophils # 0.4 K/mcL (0.0-0.6); Eosinophils % 6.3 %; Hematocrit 39.1 % (37.5-50.1); Hemoglobin 12.4 g/dL (12.9-16.9); Immature Granulocytes % 0.3 % (0-4); Lymphocytes # 0.6 K/mcL (0.6-4.6); Lymphocytes % 8.9 %; Mean Corpuscular HGB Conc 31.7 g/dL (31.6-35.5); Mean Corpuscular Hemoglobin 25.7 pg (28.0-33.3); Mean Corpuscular Volume 81.1 fL (83.0-100.0); Mean Platelet Volume 8.5 fL (9.4-12.4); Monocytes # 0.7 K/mcL (0.0-1.3); Monocytes % 10.9 %; Neutrophils # 4.5 K/mcL (1.6-8.9); Platelet Count 499 K/mcL (140-400); Red Blood Count 4.82 M/mcL (4.19-5.50); Red Cell Distribution Width 16.5 % (11.5-14.5); Segmented Neutrophils % 72.6 %; White Blood Count 6.2 K/mcL (4.3-11.1)
[2022-04-21 11:05] LABS: Alanine Aminotransferase 45 Units/L (7-52); Albumin 3.1 g/dL (3.5-5.7); Albumin/Globulin Ratio 0.7 (1.1-2.2); Alkaline Phosphatase 618 Units/L (34-104); Aspartate Amino Transferase 35 Units/L (13-39); BUN/Creatinine Ratio 22 (6-26); Bilirubin,Direct 0.1 mg/dL (0.0-0.2); Bilirubin,Indirect 0.3 mg/dL (0.0-1.0); Bilirubin,Total 0.4 mg/dL (0.3-1.0); Blood Urea Nitrogen 24 mg/dL (6-20); Calcium 9.4 mg/dL (8.6-10.3); Carbon Dioxide 27 mEq/L (23-29); Chloride 93 mEq/L (98-107); Ethanol < 10 mg/dL (Less than 10); Globulin 4.7 g/dL (2.4-3.5); Glucose 138 mg/dL (70-105); Osmolality,Calculated 274 (280-300); Potassium 5.3 mEq/L (3.5-5.1); Sodium 129 mEq/L (136-145); Total Protein 7.8 g/dL (6.4-8.9); Troponin I 0.03 ng/mL (< 0.04)
[2022-04-21] MEDS ORDERED: Naloxone 0.4 MG/ML INJ IVP PRN (11:24)
[2022-04-21] MEDS ORDERED: 0.9 % Sodium Chloride 1,000 ML IVC SCH (11:30)
[2022-04-21] MEDS ORDERED: *HR* Dextrose 50 % in Water (Syg) 50 ML SYRINGE IVP ONE (11:46)
[2022-04-21] MEDS ORDERED: Ondansetron 4 MG/2 ML VIAL ONE (13:16)
[2022-04-21] MEDS: Ondansetron 4 MG/2 ML VIAL IVP PRN (13:19)
[2022-04-21] MEDS ORDERED: *HR* OxyCODONE Immed Rel 5 MG TABLET PO PRN ×2 (14:08)
[2022-04-21] MEDS ORDERED: D5% in Water 1,000 ML IVC PRN (14:09)
[2022-04-21] MEDS ORDERED: *HR* Dextrose 50 % in Water (Syg) 50 ML SYRINGE IVP PRN (14:09)
[2022-04-21] MEDS ORDERED: Dextrose Gel 15 GM/37.5 ML TUBE PO PRN ×2 (14:09)
[2022-04-21] MEDS ORDERED: Iopamidol - 370 500 ML MLS IVP ONE (15:15)
[2022-04-21] MEDS: Insulin LISPRO 300 UNITS/3 ML VIAL SUBQ SCH ×2 (15:33→17:11)
[2022-04-21] MEDS: *HR* Heparin 5,000 UNIT/ML VIAL SQ SCH (18:07)
[2022-04-21 18:41] LABS: Calcium 9.2 mg/dL (8.6-10.3); Potassium 6.6 mEq/L (3.5-5.1)
[2022-04-21] MEDS ORDERED: Menthol 1 EACH LOZENGE PO PRN (21:05)
[2022-04-21] MEDS: Benzonatate 100 MG CAPSULE PO PRN (21:58)
[2022-04-22 02:15] LABS: Basophils # 0.1 K/mcL (0.0-0.2); Basophils % 0.7 %; Eosinophils # 0.4 K/mcL (0.0-0.6); Eosinophils % 4.8 %; Hematocrit 35.9 % (37.5-50.1); Hemoglobin 11.4 g/dL (12.9-16.9); Immature Granulocytes % 0.4 % (0-4); Lymphocytes # 0.6 K/mcL (0.6-4.6); Lymphocytes % 7.7 %; Mean Corpuscular HGB Conc 31.8 g/dL (31.6-35.5); Mean Corpuscular Hemoglobin 25.3 pg (28.0-33.3); Mean Corpuscular Volume 79.6 fL (83.0-100.0); Mean Platelet Volume 8.5 fL (9.4-12.4); Monocytes # 1.1 K/mcL (0.0-1.3); Neutrophils # 6.1 K/mcL (1.6-8.9); Platelet Count 470 K/mcL (140-400); Red Blood Count 4.51 M/mcL (4.19-5.50); Red Cell Distribution Width 16.2 % (11.5-14.5); Segmented Neutrophils % 73.4 %; White Blood Count 8.3 K/mcL (4.3-11.1)
[2022-04-22 02:39] LABS: Calcium 9.1 mg/dL (8.6-10.3); Phosphorous 4.6 mg/dL (2.7-4.5); Potassium 5.8 mEq/L (3.5-5.1)
[2022-04-22 05:32] LABS: Bacteria,Urine Few per hpf (None-Few); Bilirubin,Urine Negative (Negative); Blood,Urine Negative (Negative); Clarity,Urine Clear (Clear); Color,Urine Yellow (Yellow); Glucose,Urine (UA) Normal (Normal); Hyaline Casts,Urine Moderate per lpf (None Seen); Ketones,Urine Trace mg/dL (Negative); Leukocyte Esterase,Urine Negative (Negative); Mucus,Urine Few per lpf (None-Few); Nitrite,Urine Negative (Negative); PH,Urine 5.5 pH Units (5.0-8.0); Protein,Urine 50 mg/dL (Neg-Trace); RBC,Urine 0-3 per hpf (0-3); Specific Gravity,Urine 1.025 (1.010-1.025); WBC,Urine 0-3 per hpf (0-3)
[2022-04-22] MEDS: *HR* Heparin 5,000 UNIT/ML VIAL SQ SCH ×2 (06:15→16:44)
[2022-04-22 06:33] LABS: Calcium 9.3 mg/dL (8.6-10.3); Potassium 5.2 mEq/L (3.5-5.1)
[2022-04-22 07:15] LABS: Amphetamine Screen,Urine Negative ng/mL (Cutoff=1000); Barbiturate Screen,Urine Negative ng/mL (Cutoff=200); Benzodiazepines Screen,Urine Negative ng/mL (Cutoff=200); Cannabinoid Screen,Urine Negative ng/mL (Cutoff = 50); Cocaine Screen,Urine Negative ng/mL (Cutoff= 300); Opiate Screen,Urine Negative ng/mL (Cutoff=300); Phencyclidine Screen,Urine Negative ng/mL (Cutoff=25)
[2022-04-22] MEDS: Insulin LISPRO 300 UNITS/3 ML VIAL SUBQ SCH ×3 (08:25→15:27)
[2022-04-22] MEDS ORDERED: *HR* Propofol 200 MG/20 ML VIAL IVP ONE ×2 (12:11→12:13)
[2022-04-22] MEDS ORDERED: Iopamidol - 370 500 ML MLS IVP ONE (12:12)
[2022-04-22] MEDS ORDERED: Lidocaine -MPF 2% 5 ML VIAL ONE (12:12)
[2022-04-22] MEDS ORDERED: *HR* LORazepam 0.5 MG TABLET PO ONE (14:09)
[2022-04-22] MEDS ORDERED: Iopamidol - 370 500 ML MLS PO ONE (15:27)
[2022-04-22] MEDS: Insulin DETEMIR 100 UNIT/ML X5UNITS SUBQ SCH (19:44)
[2022-04-23] MEDS ORDERED: Insulin LISPRO 300 UNITS/3 ML VIAL SUBQ ONE ×2 (01:12→20:17)
[2022-04-23] MEDS: *HR* Heparin 5,000 UNIT/ML VIAL SQ SCH ×2 (05:39→18:15)
[2022-04-23 06:28] LABS: Basophils # 0.1 K/mcL (0.0-0.2); Eosinophils # 0.6 K/mcL (0.0-0.6); Eosinophils % 8.1 %; Hemoglobin 11.3 g/dL (12.9-16.9); Immature Granulocytes % 0.4 % (0-4); Lymphocytes # 0.6 K/mcL (0.6-4.6); Lymphocytes % 7.5 %; Mean Corpuscular HGB Conc 32.3 g/dL (31.6-35.5); Mean Corpuscular Hemoglobin 25.8 pg (28.0-33.3); Mean Corpuscular Volume 79.9 fL (83.0-100.0); Mean Platelet Volume 8.4 fL (9.4-12.4); Monocytes # 1.1 K/mcL (0.0-1.3); Neutrophils # 5.3 K/mcL (1.6-8.9); Platelet Count 477 K/mcL (140-400); Red Blood Count 4.38 M/mcL (4.19-5.50); Red Cell Distribution Width 15.9 % (11.5-14.5); White Blood Count 7.7 K/mcL (4.3-11.1)
[2022-04-23 06:49] LABS: Magnesium 2.1 mg/dL (1.6-2.6); Phosphorous 3.5 mg/dL (2.7-4.5); Potassium 5.5 mEq/L (3.5-5.1)
[2022-04-23] MEDS ORDERED: *HR* OxyCODONE ER (12 HR) 10 MG TABLET PO PRN (07:51)
[2022-04-23] MEDS ORDERED: *HR* OxyCODONE Immed Rel 5 MG TABLET PO PRN (07:52)
[2022-04-23] MEDS ORDERED: 0.9 % Sodium Chloride 1,000 ML IVC SCH (08:00)
[2022-04-23] MEDS: Insulin LISPRO 300 UNITS/3 ML VIAL SUBQ SCH ×4 (08:26→16:24)
[2022-04-23 09:31] LABS: Uric Acid 8.9 mg/dL (2.3-7.6)
[2022-04-23] MEDS: Benzonatate 100 MG CAPSULE PO PRN ×2 (11:31→18:21)
[2022-04-23] MEDS: Ondansetron 4 MG/2 ML VIAL IVP PRN ×2 (11:55→19:34)
[2022-04-23] MEDS ORDERED: Rasburicase 10 MG in 0.9 % Sodium Chloride 50 ML IV ONE (13:25)
[2022-04-23 13:46] LABS: Thyroid Stimulating Hormone 15.968 mcIU/mL (0.340-5.600)
[2022-04-23 13:48] LABS: Triiodothyronine (T3) Free 2.55 pg/mL (2.50-3.90)
[2022-04-23 15:04] LABS: Protein/Creatinine Ratio,Urine 0.19 mg/mg (0.00-0.20); Sodium, Urine 10.3 mEq/L
[2022-04-23] MEDS: *HR* OxyCODONE ER (12 HR) 10 MG TABLET PO SCH (17:26)
[2022-04-23 18:24] VITALS: TEMP 99
[2022-04-23] MEDS: Insulin DETEMIR 100 UNIT/ML X5UNITS SUBQ SCH (20:14)
[2022-04-24 02:39] VITALS: BP 123/87; PULSE 108; O2SAT 96
[2022-04-24 05:01] LABS: Hematocrit 33.7 % (37.5-50.1); Hemoglobin 10.8 g/dL (12.9-16.9); Mean Corpuscular Hemoglobin 25.8 pg (28.0-33.3); Mean Corpuscular Volume 80.4 fL (83.0-100.0); Mean Platelet Volume 8.6 fL (9.4-12.4); Platelet Count 480 K/mcL (140-400); Red Blood Count 4.19 M/mcL (4.19-5.50); Red Cell Distribution Width 15.9 % (11.5-14.5); White Blood Count 9.3 K/mcL (4.3-11.1)
[2022-04-24 05:24] LABS: Potassium 5.2 mEq/L (3.5-5.1)
[2022-04-24] MEDS: *HR* OxyCODONE ER (12 HR) 10 MG TABLET PO SCH (05:27)
[2022-04-24] MEDS: *HR* Heparin 5,000 UNIT/ML VIAL SQ SCH (05:31)
[2022-04-24] MEDS: Benzonatate 100 MG CAPSULE PO PRN (05:35)
[2022-04-24] MEDS: Insulin LISPRO 300 UNITS/3 ML VIAL SUBQ SCH (08:09)
[2022-04-24] MEDS ORDERED: SODIUM ZIRCONIUM CYCLOSILICATE 5 GM POWD.PACK PO ONE (09:00)
[2022-04-24 10:37] LABS: Estimated Average Glucose 160 mg/dl; Hemoglobin A1C 7.2 %
[2022-04-24] MEDS ORDERED: Insulin LISPRO 300 UNITS/3 ML VIAL SUBQ SCH (11:30)
[2022-04-24] MEDS ORDERED: Insulin LISPRO 300 UNITS/3 ML VIAL SUBQ ONE (20:17)
[2022-04-24] MEDS ORDERED: Insulin DETEMIR 100 UNIT/ML X5UNITS SUBQ SCH (21:00)
== END 2022-04-24 14:15 | disposition left against medical advice (07) | DRG 420 ==
LOC: 3NENU 09:32 → EMEROOARM 09:32 → SUATTDRO 14:13 → 3NENU 15:51
PROVIDERS: ADMIT General Practice; ATTEND Internal Medicine